=== PATIENT | female | born 1990 | race Hispanic/Latino ===

== ENCOUNTER 2018-05-26 14:14 | Emergency (ER) | payer OTHER ==
[2018-05-26] MEDS ORDERED: NA CHLORIDE 0.9% 1,000 ML ONE (16:30)
[2018-05-26 16:51] LABS: Absolute Lymphocytes (CBC) 1.6 K/uL (0.7-4.9); Absolute Monocytes 0.8 K/uL (0.1-1.3); Basophils % 0.3 % (0-1.3); Eosinophils % 0.1 % (0-4.4); Hematocrit 37.9 % (36.0-45.0); Lymphocytes % 9.9 % (15.3-44.8); MCH 27.9 pg (27.0-35.0); MCV 84.8 fL (80-100); MPV 8.1 fL (7.6-11.3); RBC Red Blood Cell Count 4.47 M/uL (3.86-4.86)
[2018-05-26 17:04] LABS: Urine Blood TRACE (NEG); Urine Glucose NEGATIVE (NEG); Urine Protein 1+ (NEG); Urine Specific Gravity >1.030 (1.005-1.030); Urine pH 5.5 (5.0-7.0)
--- NOTE | 2018-05-26 17:19 | RAD REPORT ---
EXAM DESCRIPTION: US - Transvaginal OB - 05/26/2018 5:12 pm CLINICAL HISTORY: VAGINAL BLEEDING Early . COMPARISON: None FINDINGS: A single gestational sac is seen within the uterus. The shape of the sac is within normal limits for gestational age. Within the sac is a single pole with crown-rump length of 18 mm, co rrelating to estimated gestational age of 8 weeks 2 days gestational age. Estimated date of delivery is 01/03/2019. Heart rate is 162 BPM. A moderate-size subchronic bleed is present along the inferior margin of the sac measuring 2.0 x 1.9 cm. Additional subchorionic bleed is seen along the superior aspect of the sac measuring 2.1 x 1.4 cm . The maternal adnexa and ovaries are within normal limits. Normal Doppler flow to both ovaries demonst rated. IMPRESSION: Single live early intrauterine gestation with estimated gestational age of 8 weeks 2 day s, CEM 01/03/2019. Moderate size subchorionic bleeds as detailed.
[2018-05-26 17:21] LABS: BUN Blood Urea Nitrogen 12 mg/dL (7-18); Bicarbonate 26 mmol/L (21-32); Glucose Level 94 mg/dL (74-106); HCG, Quantitative 63428 mIU/mL (1-3); Potassium 3.7 mmol/L (3.5-5.1); Sodium Level 137 mmol/L (136-145)
[2018-05-26] MEDS ORDERED: ACETAMINOPHEN 325 MG TABLET ONE (17:48)
[2018-05-26] MEDS ORDERED: PROMETHAZINE 25 MG/ML VIAL ONE (17:49)
--- NOTE | 2018-05-26 17:50 | ER ---
Nurse's Notes [facility] Name: Mercedes Robert Age: 27 yrs Sex: Female : 1990 Arrival Date: 05/26/2018 Time: 14:15 Bed 28 Private MD: Diagnosis: Threatened Presentation: 05/26 14:38 Presenting complaint: Patient states: Vaginal bleeding with large clots x 2 days. hb Abdominal cramping x 45 minutes. Pt reports she is approx 7 weeks . . Pt was seen at [place] ED for vaginal bleeding 2 days ago. Transition of care: patient was not received from another setting of care. Onset of symptoms was May 25, 2018. Risk Assessment: Do you want to hurt yourself or someone else? Patient reports no desire to harm self or others. Initial Sepsis Screen: Does the patient meet any 2 criteria? No. Patient's initial sepsis screen is negative. Does the patient have a suspected source of infection? No. Patient's initial sepsis screen is negative. Care prior to arrival: None. 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 - Social history:: Smoking status: Patient/guardian denies using tobacco. - Ebola Screening: : No symptoms or risks identified at this time. Screenin:42 Abuse screen: Denies threats or abuse. Nutritional screening: No deficits noted. em Tuberculosis screening: No symptoms or risk factors identified. Fall Risk None identified. Assessment: 16:15 General: Appears uncomfortable, Behavior is cooperative, anxious. Pain: Complains of ss pain in suprapubic area Pain currently is 9 out of 10 on a pain scale. Neuro: Level of Consciousness is awake, alert, obeys commands, Oriented to person, place, time, situation. Cardiovascular: Capillary refill < 3 seconds Patient's skin is warm and dry. Respiratory: Airway is patent Respiratory effort is even, unlabored, Respiratory pattern is regular, symmetrical. GI: Abdomen is flat, Bowel sounds present X 4 quads. Abd is soft X 4 quads Abdomen is tender to palpation X 4 quads. Reports bloody stool, nausea, vomiting. : Urine is clear. EENT: No signs and/or symptoms were reported regarding the EENT system. Derm: Skin is intact, Skin is pink, warm \T\ dry. Musculoskeletal: Range of motion: intact in all extremities. 17:40 Reassessment: Patient appears in no apparent distress at this time. Patient and/or em family updated on plan of care and expected duration. Pain level reassessed. Patient is alert, oriented x 3, equal unlabored respirations, skin warm/dry/pink. c/o pain and nausea, KATALINA Saenz notified, new medication orders received, passed moderate amount of blood clots, KATALINA Saenz notified. 18:30 Reassessment: Patient appears in no apparent distress at this time. Patient and/or em family updated on plan of care and expected duration. Pain level reassessed. Patient is alert, oriented x 3, equal unlabored respirations, skin warm/dry/pink. Patient states feeling better. Vital Signs: 14:40 BP 143 / 97; Pulse 75; Resp 16; Temp 97.8; Pulse Ox 100% on R/A; Weight 44.91 kg; hb Height 4 ft. 11 in. (149.86 cm); Pain 9/10; 16:31 BP 134 / 94; Pulse 78; Resp 18; Pulse Ox 99% on R/A; Pain 8/10; em 17:45 BP 114 / 76; Pulse 95; Resp 18; Pulse Ox 100% on R/A; ss 18:31 BP 118 / 72; Pulse 88; Resp 16; Pulse Ox 100% on R/A; em 14:40 Body Mass Index 20.00 (44.91 kg, 149.86 cm) hb ED Course: 14:15 Patient arrived in ED. as 14:38 Arm band placed on. hb 14:40 Triage completed. hb 16:11 Gabriel Fenton LVN is Primary Nurse. em 16:15 Dany Bryan NP is PHCP. pm1 16:15 Dru Johnson MD is Attending Physician. pm1 16:50 Patient has correct armband on for positive identification. Placed in gown. Bed in low em position. Call light in reach. Pulse ox on. NIBP on. 16:50 Initial lab(s) drawn, by me, sent to lab. Urine collected: clean catch specimen, clear. em Inserted saline lock: 20 gauge in right antecubital area, using aseptic technique. Blood collected. 17:12 US Transvaginal Ob In Process Unspecified. EDMS 17:49 Randal Nickerson MD is Referral Physician. pm1 18:29 No provider procedures requiring assistance completed. IV discontinued, intact, em bleeding controlled, No redness/swelling at site. Pressure dressing applied. Administered Medications: 17:13 Drug: NS 0.9% 1000 ml Route: IV; Rate: 1000 ml; Site: right antecubital; em 18:30 Follow up: IV Status: Completed infusion; IV Intake: 1000ml em 17:50 Drug: Phenergan 12.5 mg Route: IVP; Site: right antecubital; ss 18:30 Follow up: Response: No adverse reaction; Nausea is decreased em 17:52 Drug: Tylenol 650 mg Route: PO; em 18:30 Follow up: Response: No adverse reaction; Pain is decreased em Intake: 18:30 IV: 1000ml; Total: 1000ml. em Outcome: 17:49 Discharge ordered by MD. pm1 18:29 Discharged to home ambulatory. em 18:29 Condition: good 18:29 Discharge instructions given to patient, family, Instructed on discharge instructions, follow up and referral plans. medication usage, Demonstrated understanding of instructions, follow-up care, medications, Prescriptions given X 1. 18:31 Patient left the ED. em Signatures: Dispatcher [employer] EDNV Gabriel Fenton, QUALITY IMPROVEMENT COORDINATOR (RN) QUALITY IMPROVEMENT COORDINATOR (RN) em Katelynn Thomas Shelby, AVILA RN Dany Bryan, KATALINA OIL BOILER pm1 Jennifer Baker RN RN hb Corrections: (The following items were deleted from the chart) 14:43 14:38 Presenting complaint: Patient states: Vaginal bleeding with large clots x 2 days. hb Abdominal cramping x 45 minutes. Pt reports she is approx 7 weeks . hb 18:30 17:40 Reassessment: Patient appears in no apparent distress at this time. Patient em and/or family updated on plan of care and expected duration. Pain level reassessed. Patient is alert, oriented x 3, equal unlabored respirations, skin warm/dry/pink. c/o pain and nausea, Dany, OIL BOILER notified, new medication orders received ss
--- NOTE | 2018-05-26 17:50 | EDPHYS ---
Physician Documentation [facility] Name: Mercedes Robert Age: 27 yrs Sex: Female : 1990 Arrival Date: 05/26/2018 Time: 14:15 Bed 28 Private MD: ED Physician Dru Johnson HPI: 05/26 16:00 This 27 yrs old Female presents to ER via Ambulatory with complaints of pm1 Vaginal Bleeding, + Preg <12wks, Pelvic Pain. 16:00 The patient presents to the emergency department with vaginal bleeding, that is pm1 moderate, with clots. The estimated gestational age is 7 weeks. course: care: none, Ultrasound: the patient had an ultrasound, on May 24, 2018, which was normal. Previous pregnancies: in previous pregnancies patient has had ectopic . Associated signs and symptoms: Pertinent negatives: abdominal pain, dysuria, fever, nausea, shortness of breath, vaginal discharge, vomiting. The patient has been recently seen by a physician: Seen at [place] ER for same complaint of vaginal bleeding and had an ultrasound that showed IUP with heart rate. 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 - Social history:: Smoking status: Patient/guardian denies using tobacco. - Ebola Screening: : No symptoms or risks identified at this time. ROS: 16:00 Constitutional: Negative for fever, chills, and weight loss, Eyes: Negative for injury, pm1 pain, redness, and discharge, ENT: Negative for injury, pain, and discharge, Neck: Negative for injury, pain, and swelling, Cardiovascular: Negative for chest pain, palpitations, and edema, Respiratory: Negative for shortness of breath, cough, wheezing, and pleuritic chest pain, Abdomen/GI: Negative for abdominal pain, nausea, vomiting, diarrhea, and constipation, Back: Negative for injury and pain. 16:00 MS/Extremity: Negative for injury and deformity, Skin: Negative for injury, rash, and discoloration, Neuro: Negative for headache, weakness, numbness, tingling, and seizure. 16:00 : Positive for vaginal bleeding, Negative for urinary symptoms. Exam: 16:00 Constitutional: This is a well developed, well nourished patient who is awake, alert, pm1 and in no acute distress. Head/Face: Normocephalic, atraumatic. Neck: Trachea midline, no thyromegaly or masses palpated, and no cervical lymphadenopathy. Supple, full range of motion without nuchal rigidity, or vertebral point tenderness. No Meningismus. Chest/axilla: Normal chest wall appearance and motion. Nontender with no deformity. No lesions are appreciated. Cardiovascular: Regular rate and rhythm with a normal S1 and S2. No gallops, murmurs, or rubs. Normal PMI, no JVD. No pulse deficits. Respiratory: Lungs have equal breath sounds bilaterally, clear to auscultation and percussion. No rales, rhonchi or wheezes noted. No increased work of breathing, no retractions or nasal flaring. Abdomen/GI: Soft, non-tender, with normal bowel sounds. No distension or tympany. No guarding or rebound. No evidence of tenderness throughout. Back: No spinal tenderness. No costovertebral tenderness. Full range of motion. Skin: Warm, dry with normal turgor. Normal color with no rashes, no lesions, and no evidence of cellulitis. MS/ Extremity: Pulses equal, no cyanosis. Neurovascular intact. Full, normal range of motion. 16:00 Neuro: Orientation: is normal, Motor: is normal, moves all fours. Vital Signs: 14:40 BP 143 / 97; Pulse 75; Resp 16; Temp 97.8; Pulse Ox 100% on R/A; Weight 44.91 kg; hb Height 4 ft. 11 in. (149.86 cm); Pain 9/10; 16:31 BP 134 / 94; Pulse 78; Resp 18; Pulse Ox 99% on R/A; Pain 8/10; em 17:45 BP 114 / 76; Pulse 95; Resp 18; Pulse Ox 100% on R/A; ss 18:31 BP 118 / 72; Pulse 88; Resp 16; Pulse Ox 100% on R/A; em 14:40 Body Mass Index 20.00 (44.91 kg, 149.86 cm) MDM: 16:15 Patient medically screened. pm1 17:47 Data reviewed: vital signs. Data interpreted: Pulse oximetry: on room air is 99 %. pm1 Interpretation: normal. Counseling: I had a detailed discussion with the patient and/or guardian regarding: the historical points, exam findings, and any diagnostic results supporting the discharge/admit diagnosis, lab results, radiology results, the need for outpatient follow up, an OB/Gyne specialist, to return to the emergency department if symptoms worsen or persist or if there are any questions or concerns that arise at home. 05/26 14:53 Order name: Abo/rh Typing; Complete Time: 17:25 05/26 14:53 Order name: Basic Metabolic Panel; Complete Time: 17:05/26 14:53 Order name: CBC with Diff; Complete Time: 17:05/26 14:53 Order name: Quantitative Hcg; Complete Time: 17:05/26 16:51 Order name: Urine Dipstick--Ancillary (enter results); Complete Time: 17: ag 05/26 16:51 Order name: Urine --Ancillary (enter results); Complete Time: 17: ag 05/26 14:53 Order name: IV Saline Lock; Complete Time: 17:23 05/26 14:53 Order name: Labs collected and sent; Complete Time: 17:23 05/26 14:53 Order name: NPO; Complete Time: 16:26 05/26 14:53 Order name: Urine Dipstick-Ancillary (obtain specimen); Complete Time: 17:05/26 16:25 Order name: US Transvaginal Ob; Complete Time: 17:25 pm1 Administered Medications: 17:13 Drug: NS 0.9% 1000 ml Route: IV; Rate: 1000 ml; Site: right antecubital; em 18:30 Follow up: IV Status: Completed infusion; IV Intake: 1000ml em 17:50 Drug: Phenergan 12.5 mg Route: IVP; Site: right antecubital; ss 18:30 Follow up: Response: No adverse reaction; Nausea is decreased em 17:52 Drug: Tylenol 650 mg Route: PO; em 18:30 Follow up: Response: No adverse reaction; Pain is decreased em Disposition: 05/27 09:33 Co-signature as Attending Physician, Dru Johnson MD I agree with the assessment and [facility] plan of care. Disposition: 05/26/18 17:49 Discharged to Home. Impression: Threatened . - Condition is Stable. - Discharge Instructions: Threatened Miscarriage, Pelvic Rest. - Prescriptions for promethazine 25 mg Oral Tablet - take 1 tablet by ORAL route every 6 hours As needed; 20 tablet. - Medication Reconciliation Form, Thank You Letter, Antibiotic Education form. - Follow up: Emergency Department; When: As needed; Reason: Worsening of condition. Follow up: Randal Nickerson MD; When: 2 - 3 days; Reason: Recheck today's complaints, Continuance of care, Re-evaluation by your physician. - Problem is new. - Symptoms have improved. Signatures: Dispatcher [employer] Dru Jama MD MD cha Therrien, Shelly, VP LEGAL AFFAIRS-C VP LEGAL AFFAIRS-Csnw Gabriel Fenton, WOVEN PAPER HAT MENDER WOVEN PAPER HAT MENDER em Mandy Coates RN RN ss Dany Bryan, KATALINA WEIGHT COUNT OPERATOR pm1 Jennifer Baker RN RN Corrections: (The following items were deleted from the chart) 05/26 18:31 17:49 05/26/2018 17:49 Discharged to Home. Impression: Threatened . Condition em is Stable. Forms are Medication Reconciliation Form, Thank You Letter, Antibiotic Education, Prescription Opioid Use. Follow up: Emergency Department; When: As needed; Reason: Worsening of condition. Follow up: Randal Nickerson; When: 2 - 3 days; Reason: Recheck today's complaints, Continuance of care, Re-evaluation by your physician. Problem is new. Symptoms have improved. pm1
== END 2018-05-26 18:31 | disposition home or self-care (01) ==
LOC: ER 14:14
DX: O20.0 Threatened abortion (principal); Z3A.01 Less than 8 weeks gestation of pregnancy
CPT/HCPCS: 36415; 76817; 80048; 81003; 81025; 84702; 85025; 86900; 86901; 96361; 96374; 99284; J2550; J7030